=== PATIENT | male | born 1970 | race Hispanic/Latino ===

== ENCOUNTER 2018-12-19 06:32 | Outpatient (CLI) | payer BC ==
[2018-12-19 07:14] LABS: ALT (SGPT) 34 U/L (8-55); AST (SGOT) 27 U/L (5-34); Albumin 4.2 g/dL (3.5-5.0); Alkaline Phosphatase 74 U/L (40-150); Anion Gap 15 mmol/L (10-20); BUN (Urea Nitrogen) 18 mg/dL (8.9-20.6); Bilirubin, Total 0.6 mg/dL (0.2-1.2); Calc. Creatinine Clearance 0 mL/min (70-130); Calcium 9.6 mg/dL (7.8-10.44); Carbon Dioxide 20 mmol/L (22-29); Cardiac Risk 27.9 (Less than 4.5); Chloride 102 mmol/L (98-107); Cholesterol 447 mg/dl (< 200 Desired); Estimated GFR-MDRD 85; Globulin 2.8 g/dL (2.4-3.5); Glucose 237 mg/dL (70-105); HDL Cholesterol 16 mg/dL (>60 Neg Risk); Potassium 3.8 mmol/L (3.5-5.1); Sodium 133 mmol/L (136-145); Triglycerides 2254 mg/dL (Less than 150)
[2018-12-19 07:32] LABS: Bilirubin Negative (Negative); Blood, Urine Trace (Negative); Clarity Clear (Clear); Glucose, Urine (Dipstick) 500 mg/dL (Negative); Leukocyte Negative (Negative); Nitrite Negative (Negative); Protein, Urine (Dipstick) 100 mg/dL (Neg-Trace); Specific Gravity, Urine 1.025 (1.005-1.030); Urobilinogen 0.2 mg/dL (0.2-1.0)
[2018-12-19 08:00] LABS: Bacteria/HPF None Seen HPF (None Seen); Hyaline Casts/LPF NONE SEEN LPF (0-3 Hyaline); RBC/HPF 0-3 HPF (0-3); Squamous Epithelial 0-3 HPF (0-3); WBC/HPF 0-3 HPF (0-3)
[2018-12-19 08:28] LABS: #Basophils 0.1 thou/uL (0.0-0.2); #Eosinphils 0.1 thou/uL (0.0-0.7); #Lymphocytes 1.5 thou/uL (1.20-3.40); #Monocytes 0.4 thou/uL (0.11-0.59); #Neutrophils 2.8 thou/uL (1.40-6.50); %Basophils 1.8 % (0.0-1.0); %Eosinophils 1.4 % (0.0-10.0); %Lymphocytes 30.7 % (21.0-51.0); %Neutrophils 58.2 % (42.0-75.0); Hemoglobin 14.9 g/dL (14.0-18.0); MDiff Complete? YES; Mean Corpuscular HGB CONC 37.3 g/dL (32.0-36.0); Mean Corpuscular Hemoglobin 35.1 pg (27.0-31.0); Mean Corpuscular Volume 94.1 fL (78.0-98.0); Mean Platelet Volume 9.2 fL (7.4-10.4); Platelet Count 146 thou/uL (130-400); Platelet Morphology Comment Appears Adequate; RBC Morphology Normal; Red Blood Cell (RBC) Count 4.24 mill/uL (4.70-6.10); White Blood Cell (WBC) Count 4.9 thou/uL (4.8-10.8)
[2018-12-19 10:17] LABS: Hemoglobin A1c 8.1 % (4.0-6.0)
== END 2018-12-19 06:33 | disposition home or self-care (01) ==
LOC: SCSLAB 06:32
PROVIDERS: ATTEND Family Medicine
DX: Z00.00 Encounter for general adult medical examination without abnormal findings (principal); E11.9 Type 2 diabetes mellitus without complications
CPT/HCPCS: 36415; 80053; 80061; 81001; 83036; 85025

== ENCOUNTER 2019-02-25 09:15 | Observation (INO) | payer BC ==
[2019-02-25 09:55] LABS: Bicarbonate (HCO3v) 21.6 mmol/L (22.0-28.0); CO2 Tension (PvCO2) 36.7 mmHg (40.0-50.0); Calcium, Ionized 1.12 mmol/L (See Comments:); Chloride 103 mmol/L (98-107); Hemoglobin - Calc 16.5 g/dL (14.0-18.0); O2 Tension (PvO2) 52.8 mmHg (35.0-45.0); Potassium 4.4 mmol/L (3.5-5.1); Sodium 137 mmol/L (138-145); T. Carbon Dioxide 22.7 mmol/L (22.0-28.0); pH (Venous) 7.378 (7.320-7.430); vO2 Saturation-calc 86.4 % (60.0-85.0)
[2019-02-25 10:07] LABS: INR-International Normal Ratio 0.9; PTT 30.9 SEC (22.9-36.1); Prothrombin Time 12.1 SEC (12.0-14.7)
[2019-02-25 10:17] LABS: ALT (SGPT) 29 U/L (8-55); AST (SGOT) 24 U/L (5-34); Albumin 4.6 g/dL (3.5-5.0); Alkaline Phosphatase 97 U/L (40-150); Anion Gap 27 mmol/L (10-20); BUN (Urea Nitrogen) 14 mg/dL (8.9-20.6); Bilirubin, Total 0.4 mg/dL (0.2-1.2); Calc. Creatinine Clearance 0 mL/min (70-130); Carbon Dioxide 8 mmol/L (22-29); Chloride 104 mmol/L (98-107); Estimated GFR-MDRD 60; Globulin 4.1 g/dL (2.4-3.5); Glucose 281 mg/dL (70-105); Potassium 4.1 mmol/L (3.5-5.1); Protein, Total 8.7 g/dL (6.0-8.3); Sodium 135 mmol/L (136-145)
[2019-02-25 10:35] LABS: Hemoglobin 17.1 g/dL (14.0-18.0); Mean Corpuscular HGB CONC 37.1 g/dL (32.0-36.0); Mean Corpuscular Hemoglobin 34.7 pg (27.0-31.0); Mean Corpuscular Volume 93.4 fL (78.0-98.0); Mean Platelet Volume 10.6 fL (7.4-10.4); Platelet Count 141 thou/uL (130-400); RBC Distribution Width 12.2 % (11.5-14.5); Red Blood Cell (RBC) Count 4.93 mill/uL (4.70-6.10); White Blood Cell (WBC) Count 5.6 thou/uL (4.8-10.8)
[2019-02-25 10:41] LABS: #Basophils 0.1 thou/uL (0.0-0.2); #Eosinphils 0.1 thou/uL (0.0-0.7); #Lymphocytes 1.6 thou/uL (1.20-3.40); #Monocytes 0.3 thou/uL (0.11-0.59); #Neutrophils 3.7 thou/uL (1.40-6.50); %Basophils 1.1 % (0.0-1.0); %Eosinophils 1.5 % (0.0-10.0); %Lymphocytes 27.5 % (21.0-51.0); %Monocytes 4.6 % (0.0-10.0); %Neutrophils 65.3 % (42.0-75.0); Platelet Morphology Comment Appears Adequate; RBC Morphology Normal
[2019-02-25] MEDS ORDERED: Piperacillin/Tazobactam 3.375 GM VIAL ONE (11:36)
[2019-02-25] MEDS ORDERED: Sodium Chloride 0.9% 100 ML ONE (11:37)
[2019-02-25] MEDS ORDERED: Sodium Chloride 0.9% 1,000 ML IV SCH (12:45)
[2019-02-25] MEDS ORDERED: Ondansetron PF 4 MG/2 ML Vial IVP PRN ×2 (12:45→13:22)
[2019-02-25] MEDS ORDERED: Ondansetron ODT 4 MG TAB SL PRN (12:45)
[2019-02-25] MEDS ORDERED: Acetaminophen 325 MG TAB PO PRN ×2 (12:45→13:22)
[2019-02-25] MEDS ORDERED: Cepastat Lozenges 1 LOZ PO PRN (13:22)
[2019-02-25] MEDS ORDERED: Calcium Carbonate 500 MG ChewTAB PO PRN (13:22)
[2019-02-25] MEDS ORDERED: hydrALAZINE 20 MG/ML VIAL SLOW IVP PRN (13:22)
[2019-02-25] MEDS ORDERED: Ondansetron ODT 4 MG TAB PO PRN (13:22)
[2019-02-25] MEDS ORDERED: Bisacodyl 10 MG SUPP PR PRN (13:22)
[2019-02-25] MEDS ORDERED: Dextrose 50% Abboject 50 ML SYRINGE SLOW IVP PRN (13:22)
[2019-02-25] MEDS ORDERED: Eucerin (Mineral Oil/Petrolatum,White) 30 gm Jar TOP PRN (13:22)
[2019-02-25] MEDS ORDERED: Loratadine 10 MG TAB PO PRN (13:22)
[2019-02-25] MEDS ORDERED: Artificial Tears 18 DROP/0.9 ML EA EYE PRN (13:22)
[2019-02-25] MEDS ORDERED: Senokot S 8.6-50 MG TAB PO PRN (13:22)
[2019-02-25] MEDS ORDERED: Diabetic Tussin 200 MG/10 ML UDCUP PO PRN (13:22)
[2019-02-25] MEDS ORDERED: Zolpidem Tartrate 5 MG TAB PO PRN (13:22)
[2019-02-25] MEDS ORDERED: HYDROcodone/Acetaminophen 5/325 mg Tablet PO PRN (13:22)
[2019-02-25] MEDS ORDERED: Loperamide HCl 2 MG CAP PO PRN (13:22)
[2019-02-25] MEDS ORDERED: Sodium Chloride 0.65% Nasal 44 ML BOT EA NARE PRN (13:22)
[2019-02-25] MEDS ORDERED: HumaLOG 300 UNITS/3 ML VIAL SC PRN ×2 (13:22)
[2019-02-25] MEDS ORDERED: Dextrose 5% in Water 1,000 ML IV PRN (13:22)
[2019-02-25] MEDS: Sodium Chloride 0.9% 1,000 ML IV SCH ×2 (14:23→20:11)
--- NOTE | 2019-02-25 14:27 | HP ---
PRIMARY CARE PHYSICIAN: Lakeshia Garcia MD REASON FOR ADMISSION: Abnormal labs. HISTORY OF PRESENT ILLNESS: A 48-year-old male, who has underlying history of diabetes who takes metformin 1000 mg p.o. b.i.d. for last one year. The patient went to see his primary care physician for routine check and the patient had routine labs done and the patient was found with abnormal labs result with CO2 low and anion gap was elevated. His CO2 was 8 and anion gap was 28. The patient reports that he gets routine blood checked every few months, but he never had this type of problem before. He denies any shortness of breath. He denies any fever or chills. He denies any nausea, vomiting, or diarrhea. He denies any UTI symptoms. He denies any flu-like illness. He denies any heavy exertion or muscle pain. He denies any unusual illicit drug abuse, but the patient reports that last night, he took metformin on empty stomach, and he also drank a little bit beer and this morning, he had routine blood tests done. The patient denies any alcohol abuse. The patient also found with slightly elevated lactic acid, though he denies any fever or chills. In the emergency room, he was perfectly fine, but as labs was abnormal and that is why he was sent to emergency room for evaluation. In the emergency room, the patient had blood culture done. He was given Zosyn, vancomycin, IV fluid, and subsequently, he was sent to hospital for further evaluation and treatment. REVIEW OF SYSTEMS: CONSTITUTIONAL: Negative for weight loss or gain, ability to conduct usual activities. SKIN: Negative for rash, itching. EYES: Negative for double vision, pain. ENT/MOUTH: Negative for nose bleeding, neck stiffness, pain, tenderness. CARDIOVASCULAR: Negative for palpitations, dyspnea on exertion, orthopnea. RESPIRATORY: Negative for shortness of breath, wheezing, cough, hemoptysis, fever or night sweats. GASTROINTESTINAL: Negative for poor appetite, abdominal pain, heartburn, nausea, vomiting, constipation, or diarrhea. GENITOURINARY: Negative for urgency, frequency, dysuria, nocturia. MUSCULOSKELETAL: Negative for pain, swelling. NEUROLOGIC/PSYCHIATRIC: Negative for anxiety, depression. ALLERGY/IMMUNOLOGIC: Negative for skin rash, bleeding tendency. Please see my HPI for pertinent positives and negatives. All other review of systems reviewed and negative except as mentioned in HPI. PAST MEDICAL HISTORY: Diabetes type 2, hypertension, obesity, dyslipidemia. PAST SURGICAL HISTORY: Left knee surgery, left ankle surgery, left shoulder rotator cuff repair. PAST PSYCHIATRIC HISTORY: Anxiety and depression. SOCIAL HISTORY: The patient is . He is working to install fire alarms. He denies any smoking. He drinks alcohol occasionally and socially. He denies any other illicit drug abuse. FAMILY HISTORY: Diabetes, hypertension runs among several family members. ALLERGIES: NO KNOWN DRUG ALLERGIES. CURRENT HOME MEDICATIONS: 1. Venlafaxine 75 mg twice daily. 2. Metformin 1000 mg twice daily. 3. Lisinopril 10 mg p.o. daily. EMERGENCY ROOM COURSE: The patient is given vancomycin, Zosyn, and IV fluid. PHYSICAL EXAMINATION: VITAL SIGNS: On arrival, blood pressure 147/88, pulse 110, respiratory rate 20, temperature 97.9, saturation 98% on room air. Weight 97.9 kg. GENERAL: The patient is currently alert, awake, in no obvious acute distress. HEENT: Head; normocephalic, atraumatic. Eyes; pupils round, reactive to light. Extraocular muscles intact. ENT; oropharynx within normal limits. Moist mucous membranes. No oral lesion. No pharyngeal erythema. No exudate. NECK: Supple. No JVD. No thyromegaly. No carotid bruit. No jugular venous distention. LUNGS: Clear to auscultation without any rhonchi or rales. CARDIAC: S1 and S2, regular. No murmur. No gallop. No rub. Slightly tachycardic, but currently no more tachycardia. ABDOMEN: Soft. Bowel sounds present. Nontender. Nondistended. No organomegaly. No mass. No suprapubic tenderness. BACK: Unremarkable. No CVA tenderness. EXTREMITIES: Upper extremity, passive movement of all joints are normal. Lower extremity, no edema. Good distal pulsation. SKIN: No skin rash. HEMATOLOGICAL SYSTEM: No lymphadenopathy. PSYCHIATRIC: Normal affect. NEUROLOGIC: Nonfocal examination. SIGNIFICANT LABORATORY DATA: CBC; WBC 5.6, hemoglobin 17.1, platelets 141. INR 0.9. VBG; pH 7.37, bicarb 21.6, CO2 of 36.7, O2 of 52.8. BMP; sodium 135, potassium 4.1, chloride 104, carbon dioxide 8, anion gap 27, BUN 14, creatinine 1.27, glucose 281, calcium 10.0. Lactic acid 3.2. LFT; AST 24, ALT 29, alkaline phosphatase 97, albumin 4.6. Beta-hydroxybutyrate 0.19. ASSESSMENT AND PLAN: 1. Anion gap metabolic acidosis. The patient has lactic acidosis. He is taking metformin 1000 mg twice daily and I am suspecting metformin known to cause lactic acidosis and elevated anion gap metabolic acidosis. His renal function is normal. This patient denies any other high osmotic agent ingestion. He denies any ethanol, methanol, ethylene glycol, or any kind of rubbing alcohol ingestion. He does not have any sepsis clinically. He does not have any hypoperfusion. At this point, more suspicious towards metformin-induced lactic acidosis, but other etiology needs to be excluded and that is why I will check serum drug screen and urine drug screen. I will check osmolality. At this point, his calculated osmolality is 292 and we will measure serum osmolality and rule out any smaller gap. We will check urinalysis. At this point, the patient will be given IV fluid and we will repeat labs tomorrow. We will observe him on medical floor. I will not give him antibiotic therapy because there is no clinical suspicious or infection. 2. Lactic acidosis suspecting from metformin-induced rather than any infection. We will repeat lactic acid level tomorrow. 3. Diabetes type 2. We will hold on metformin therapy. We will continue insulin as per sliding scale per protocol. I will check hemoglobin A1c and add glyburide 5 mg p.o. daily for better blood sugar control. If the patient needs to be on metformin, then dose of metformin should be reduced. We will defer that part as an outpatient basis. 4. Hypertension. We will continue lisinopril 10 mg p.o. daily. 5. Anxiety and depression. We will continue Effexor 75 mg twice daily. 6. Obesity. Dietary education given. Weight loss education given. Healthy lifestyle measure discussed with the patient. 7. Deep venous thrombosis prophylaxis not needed because we are expecting discharge soon. 8. Gastrointestinal prophylaxis, Pepcid 20 mg p.o. b.i.d. CODE STATUS: The patient is full code. The patient's is surrogate decision maker. DISPOSITION PLAN: Based on clinical course. Plan of care extensively discussed with the patient and family member at bedside. The patient also does not have any DKA given serum ketones are normal. Job ID: [id number]
[2019-02-25 14:36] LABS: Bilirubin Negative (Negative); Blood, Urine Negative (Negative); Clarity CLEAR (Clear); Glucose, Urine (Dipstick) Negative (Negative); Leukocyte Negative (Negative); Nitrite Negative (Negative); Protein, Urine (Dipstick) Negative (Neg-Trace); Specific Gravity, Urine 1.018 (1.002-1.036); Urobilinogen 0.2 mg/dL (0.2-1.0)
[2019-02-25 14:47] LABS: Amphetamine Not Detected (NotDetected); Barbiturates Screen Not Detected (NotDetected); Benzodiazepine Screen Not Detected (NotDetected); Cocaine Metabolite Screen Not Detected (NotDetected); Medtox Control Line Valid? VALID (VALID); Medtox Reader # READER 1; Methadone Not Detected (NotDetected); Methamphetamine Not Detected (NotDetected); Opiate Screen Not Detected (NotDetected); Oxycodone Screen Not Detected (NotDetected); Phencyclidine (PCP) Not Detected (NotDetected); THC/Cannabinoid Screen Not Detected (NotDetected); Tricyclic Screen Not Detected (NotDetected)
[2019-02-25 14:49] LABS: Acetaminophen Less than 6.0 mcg/mL (10.0-30.0); Alcohol Less than 10 mg/dL (Less than 10); CK (CPK) 105 U/L (30-200)
[2019-02-25 14:54] LABS: Salicylate Less than 40.0 mg/dL (15.0-30.0)
[2019-02-25] MEDS ORDERED: Sodium Bicarb 50 MEQ/50 ML Abboject 8.4% SYRINGE IVP SCH (15:15)
[2019-02-25] MEDS ORDERED: Sodium Bicarb 50 MEQ/50 ML VIAL IVP SCH (15:30)
[2019-02-25] MEDS: Famotidine 20 MG TAB PO SCH (20:07)
[2019-02-26 05:07] LABS: #Basophils 0.1 thou/uL (0.0-0.2); #Eosinphils 0.1 thou/uL (0.0-0.7); #Lymphocytes 2.2 thou/uL (1.20-3.40); #Monocytes 0.4 thou/uL (0.11-0.59); #Neutrophils 2.5 thou/uL (1.40-6.50); %Basophils 1.3 % (0.0-1.0); %Eosinophils 2.2 % (0.0-10.0); %Lymphocytes 41.8 % (21.0-51.0); %Monocytes 7.7 % (0.0-10.0); %Neutrophils 46.9 % (42.0-75.0); Hemoglobin 15.3 g/dL (14.0-18.0); Mean Corpuscular HGB CONC 35.8 g/dL (32.0-36.0); Mean Corpuscular Hemoglobin 33.2 pg (27.0-31.0); Mean Corpuscular Volume 92.9 fL (78.0-98.0); Mean Platelet Volume 8.9 fL (7.4-10.4); Platelet Count 120 thou/uL (130-400); RBC Distribution Width 11.8 % (11.5-14.5); White Blood Cell (WBC) Count 5.3 thou/uL (4.8-10.8)
[2019-02-26 05:27] LABS: Lactic Acid 1.6 mmol/L (0.5-2.2)
[2019-02-26 05:29] LABS: ALT (SGPT) 22 U/L (8-55); AST (SGOT) 18 U/L (5-34); Albumin 4.1 g/dL (3.5-5.0); Alkaline Phosphatase 72 U/L (40-150); Anion Gap 17 mmol/L (10-20); BUN (Urea Nitrogen) 11 mg/dL (8.9-20.6); Bilirubin, Total 0.5 mg/dL (0.2-1.2); Calc. Creatinine Clearance 135 mL/min (70-130); Calcium 8.9 mg/dL (7.8-10.44); Carbon Dioxide 18 mmol/L (22-29); Chloride 105 mmol/L (98-107); Estimated GFR-MDRD 88; Glucose 144 mg/dL (70-105); Potassium 3.7 mmol/L (3.5-5.1); Protein, Total 7.1 g/dL (6.0-8.3); Sodium 136 mmol/L (136-145)
[2019-02-26 05:30] LABS: Hemoglobin A1c 10.6 % (4.0-6.0)
[2019-02-26] MEDS: Sodium Chloride 0.9% 1,000 ML IV SCH (05:32)
[2019-02-26] MEDS ORDERED: glyBURIDE 5 MG TAB PO SCH (08:00)
[2019-02-26] MEDS ORDERED: Lisinopril 10 MG TAB PO SCH (09:00)
[2019-02-26] MEDS: Famotidine 20 MG TAB PO SCH (09:32)
[2019-02-26 11:05] VITALS: BP 101/59; TEMP 98.4
--- NOTE | 2019-02-26 11:08 | DIS ---
DATE OF ADMISSION: 02/25/2019 DATE OF DISCHARGE: 02/26/2019 PRIMARY CARE PHYSICIAN: Dr. Lakeshia Garcia. DISCHARGE DISPOSITION: Home. PRIMARY DISCHARGE DIAGNOSES: High anion gap metabolic lactic acidosis, high salicylate level. SECONDARY DISCHARGE DIAGNOSES: Obesity with BMI 34, hypertension, diabetes type 2. PRIMARY PROCEDURE/OPERATION: None. RADIOLOGICAL INVESTIGATION: None. SIGNIFICANT LABS: Today; WBC 5.3, hemoglobin 15.3, platelet 120. INR 0.9. Sodium 136, potassium 3.7, anion gap 17, BUN 11, creatinine 0.91. Hemoglobin A1c 10.6. LFT normal. Lactic acid 1.6. Urinalysis normal. Salicylate level was 40 and urine drug screen negative. Serum ketones negative. Tylenol normal. Alcohol level less than 10. Blood culture negative. DISCHARGE MEDICATION: 1. We are advising this patient to reduce his metformin to 500 mg p.o. b.i.d., and the patient will need repeat lab testing done with lactic acid and BMP. 2. The patient is also advised to continue lisinopril 10 mg p.o. daily, if blood pressure permits, otherwise he needs to reduce to half dose daily. 3. Venlafaxine 75 mg p.o. b.i.d. 4. Glyburide 5 mg p.o. daily. CONTRAINDICATION: None. CODE STATUS: Full code. INPATIENT MAGNETIC LOCATER: None. ALLERGIES: NO KNOWN DRUG ALLERGIES. DISCHARGE PLAN: Post hospital, the patient is instructed to follow up with primary care physician. HOSPITAL COURSE: A 48-year-old male who had regular followup visit with primary care physician yesterday and they did routine blood tests and he was found with abnormal lab. His CBC was normal, but his BMP showed carbon dioxide level 8 and he was having an elevated anion gap metabolic acidosis. He had slightly elevated lactic acid as well and the blood sugar was slightly elevated. The patient was completely asymptomatic. We tried to get history from him and the patient denied any salicylate abuse and his salicylate level was high. His ketones were negative. Alcohol level was negative, and he did not have any other alcohol abuse history. His urine drug screen was negative. While in the hospital, we only hydrated with IV fluid and his anion gap improved. His acidosis improved. At this point, our clinical diagnosis is most probably from salicylate, but the patient denies any salicylate use. We are also reducing his metformin to 500 mg p.o. b.i.d. and we also advised him to reduce the lisinopril if needed. We also gave him one dose of sodium bicarbonate while in hospital. At this point, the patient is completely asymptomatic. I advised this patient to follow up with primary care physician within a week and do repeat lab testing done and if this patient still has similar abnormality, then he will benefit from Nephrology evaluation. At this point, all laboratory abnormality is improving and clinically asymptomatic and that is why we are not pursuing further investigation while in hospital, but he will follow up with his primary care physician with repeat lab testing done. I have seen and examined the patient at bedside today. All review of systems reviewed with him and negative. The patient is medically stable for discharge today. Job ID: [id number]
--- NOTE | 2019-02-26 12:38 | PDOC.PN ---
- Subjective Encounter Start Date: 02/26/19 Encounter Start Time: 10:40 Patient seen and examined. No new complaints. No overnight events - Objective Resuscitation Status - Order Detail: 02/25/19 13:19 Resuscitation Status Routine Resuscitation Status: FULL: Full Resuscitation MAR Reviewed: Yes Vital Signs & Weight: Vital Signs (12 hours) Temp Pulse Resp BP Pulse Ox 02/26/19 11:00 98.4 F 87 18 101/59 L 97 02/26/19 07:25 97.8 F 72 18 96/59 L 97 02/26/19 04:00 97.9 F 66 16 110/71 96 Weight Weight 216 lb 0.848 oz Result Diagrams: 02/26/19 04:47 02/26/19 04:47 Additional Labs: Accuchecks 02/26/19 02/26/19 02/25/19 11:00 05:25 19:40 POC Glucose 155 H 146 H 190 H 02/25/19 16:34 POC Glucose 162 H Phys Exam - Physical Examination Constitutional: NAD HEENT: PERRLA, moist MMs, sclera anicteric Neck: no JVD, supple Respiratory: no wheezing, no rales, no rhonchi Cardiovascular: RRR, no significant murmur, no rub Gastrointestinal: soft, non-tender, no distention, positive bowel sounds Musculoskeletal: no edema, pulses present Neurological: non-focal, normal sensation, moves all 4 limbs Lymphatic: no nodes Psychiatric: normal affect, A&O x 3 Skin: no rash, normal turgor Dx/Plan (1) High anion gap metabolic acidosis Code(s): E87.2 - ACIDOSIS Status: Acute (2) Lactic acidosis Code(s): E87.2 - ACIDOSIS Status: Acute (3) Diabetes type 2, controlled Code(s): E11.9 - TYPE 2 DIABETES MELLITUS WITHOUT COMPLICATIONS Status: Chronic (4) Hypertension Code(s): I10 - ESSENTIAL (PRIMARY) HYPERTENSION Status: Chronic (5) Obesity (BMI 30-39.9) Code(s): E66.9 - OBESITY, UNSPECIFIED Status: Chronic - Plan cont current plan of care * medication reviewed as below * symptomatic treatment * see discharge summery. Review of Systems - Review of Systems ENT: negative: Ear Pain, Ear Discharge, Nose Pain, Nose Discharge, Nose Congestion, Mouth Pain, Mouth Swelling, Throat Pain, Throat Swelling, Other Respiratory: negative: Cough, Dry, Shortness of Breath, Hemoptysis, SOB with Excertion, Pleuritic Pain, Sputum, Wheezing Cardiovascular: negative: chest pain, palpitations, orthopnea, paroxysmal nocturnal dyspnea, edema, light headedness, other Gastrointestinal: negative: Nausea, Vomiting, Abdominal Pain, Diarrhea, Constipation, Melena, Hematochezia, Other Genitourinary: negative: Dysuria, Frequency, Incontinence, Hematuria, Retention , Other Musculoskeletal: negative: Neck Pain, Shoulder Pain, Arm Pain, Back Pain, Hand Pain, Leg Pain, Foot Pain, Other - Medications/Allergies Allergies/Adverse Reactions: Allergies Allergy/AdvReac Type Severity Reaction Status Date / Time No Known Allergies Allergy Verified 02/25/19 13:55 Medications: Current Medications Acetaminophen (Tylenol) 650 mg PO Q4H PRN PRN Reason: Headache/Fever/Mild Pain (1-3) Last Admin: 02/25/19 20:09 Dose: 650 mg Hydrocodone Bitart/Acetaminophen ([place] 5/325) 1 tab PO Q4H PRN PRN Reason: Moderate Pain (4-6) Artificial Tears (Tears Naturale) 2 drop EA EYE PRN PRN PRN Reason: Dry Eyes Bisacodyl (Dulcolax) 10 mg CA DAILYPRN PRN PRN Reason: Constipation Calcium Carbonate (Tums) 1,000 mg PO Q4H PRN PRN Reason: Heartburn or Indigestion Dextrose/Water (Dextrose 50%) 25 gm SLOW IVP PRN PRN PRN Reason: Hypoglycemia Famotidine (Pepcid) 20 mg PO BID [facility] Last Admin: 02/26/19 09:32 Dose: 20 mg Glucagon (Glucagon) 1 mg IM PRN PRN PRN Reason: Hypoglycemia Glyburide (Diabeta) 5 mg PO QAM-WM [facility] Last Admin: 02/26/19 09:31 Dose: 5 mg Guaifenesin (Robitussin Sf) 200 mg PO Q4H PRN PRN Reason: Cough Hydralazine HCl (Apresoline) 10 mg SLOW IVP Q4H PRN PRN Reason: SBP > 180 and HR < 70 Dextrose/Water (D5w) 1,000 mls @ 0 mls/hr IV .Q0M PRN PRN Reason: Hypoglycemia Sodium Chloride (Normal Saline 0.9%) 1,000 mls @ 125 mls/hr IV .Q8H [facility] Last Admin: 02/26/19 05:32 Dose: 1,000 mls Insulin Human Lispro (Humalog) 0 units SC .MODERATE SLIDING SC PRN PRN Reason: Moderate Correctional Scale Insulin Human Lispro (Humalog) 0 units SC .BEDTIME SLIDING SC PRN PRN Reason: Bedtime Correctional Scale Lisinopril (Zestril) 10 mg PO DAILY [facility] Last Admin: 02/26/19 09:32 Dose: Not Given Loperamide HCl (Imodium) 2 mg PO PRN PRN PRN Reason: Diarrhea/Loose Stools Loratadine (Claritin) 10 mg PO DAILYPRN PRN PRN Reason: Sinus Symptoms Mineral Oil/White Petrolatum (Eucerin Cream) 0 gm TOP BIDPRN PRN PRN Reason: Dry Skin Ondansetron HCl (Zofran Odt) 4 mg PO Q6H PRN PRN Reason: Nausea/Vomiting Ondansetron HCl (Zofran) 4 mg IVP Q6H PRN PRN Reason: Nausea/Vomiting Senna/Docusate Sodium (Senokot S) 2 tab PO BID PRN PRN Reason: Constipation Sodium Chloride ([place] Nasal [place] 0.65%) 0 ml EA NARE QIDPRN PRN PRN Reason: Nasal Congestion Throat Lozenges (Cepastat Lozenges) 1 miesha PO Q2H PRN PRN Reason: Sore Throat Venlafaxine HCl (Effexor) 75 mg PO BID [facility] Last Admin: 02/26/19 09:32 Dose: 75 mg Zolpidem Tartrate (Ambien) 5 mg PO HSPRN PRN PRN Reason: Insomnia
== END 2019-02-26 13:33 | disposition home or self-care (01) ==
LOC: SCSER 09:15 → T4-A 12:35
PROVIDERS: ADMIT Internal Medicine; ATTEND Internal Medicine
DX: E87.2 Acidosis (principal); R89.2 Abnormal level of other drugs, medicaments and biological substances in specimens from other organs, systems and tissues; E11.9 Type 2 diabetes mellitus without complications; I10 Essential (primary) hypertension; E78.5 Hyperlipidemia, unspecified; F32.9 Major depressive disorder, single episode, unspecified; F41.9 Anxiety disorder, unspecified; E66.9 Obesity, unspecified; Z68.34 Body mass index [BMI] 34.0-34.9, adult; Z79.84 Long term (current) use of oral hypoglycemic drugs; Z79.899 Other long term (current) drug therapy
CPT/HCPCS: 36415; 36416; 80053; 80061; 80306; 80307; 81003; 82010; 82330; 82550; 82803; 83036; 83605; 83930; 85014; 85025; 85610; 85730; 87040; 95811; 96361; 96374; 96375; G0378; J2543; J3490

== ENCOUNTER 2024-09-24 15:03 | Outpatient (CLI) | payer BC | END 2024-09-24 15:04 | disposition home or self-care (01) | LOC: SCSRAD 15:03 | PROVIDERS: ATTEND Physician Assistant | DX: J18.9 Pneumonia, unspecified organism (principal); R91.8 Other nonspecific abnormal finding of lung field | CPT/HCPCS: 71046 ==